=== PATIENT | female | born 1950 ===

== ENCOUNTER 2024-11-26 10:50 | Outpatient (AMB) | payer MEDICARE, SELFPAY ==
--- NOTE | 2024-11-26 10:53 | A.OFFPC_ITS ---
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: No Allergies No Known Allergies Allergy (Verified 11/26/24 11:05) Medication List - Last Reviewed 11/26/24 by Willie Das MA bupropion HCl XL 300 mg PO DAILY hydrochlorothiazide 12.5 mg PO DAILY lisinopril 40 mg PO DAILY Tobacco use date assessed: 11/26/24 Fall risk assessment: No Falls in past year Last assessed Fall Risk: 11/26/24 Dental Screening Dental Screen Date: 11/26/24 Did you have a dental visit in the last 12 months?: No Did you have a dental problem in the last 6 months where you did not have access to dental care?: No Was dental information given to patient?: Patient has dentist HPI HPI Comments History of Present Illness Details 74 y/o F with HTN, CKD3, IFG, HLD, ERIKA, MDD, OA of multiple joints, Fibromyalgia, obesity , Hx of provoked RLE DVT, biliary calculous, fhx breast ca, obesity SurgHx: s/p lung bx, FHx: Sister breast ca SocHx: ; Health Maintenance: See scanned preventative medicine assessment with personalized health plan and screening schedule. Colon: declined Mammo: declined DEXA : declined PAP Vaccines: Tdap 2024 Flu 11/2024 [employer] PPSV 2020; Shingrix ___ AAA screen EKG: [place] of Care: Ortho wears glasses Optho Wt Mgmt Visual Acuity: Hearing Screening: ACP: HCP Y Dietary/Nutrition/Exercise Edu provided: Y History of Present Illness The patient is a 74-year-old female presenting to [facility]. Old records rec'd and reviewed: [facility] Obesity: - BMI: 35.6. - Interested in GLP1 - Plan refer to [facility] [place] mgmt Hypertension: - On hydrochlorothiazide and lisinopril. - BP at goal, refills sent . Anxiety: - Previously used clonazepam to help her sleep; has been w/o for years d/t no PCP - Experiences disturbances in sleep. Depression: - Maintained on bupropion. Chronic Kidney Disease Stage 3: - No recent labs. Hyperlipidemia: - Not on statin therapy. Fibromyalgia: - Chronic pain Deep Vein Thrombosis (history), R - After a leg cast. Provoked. No further issues R knee pain and swelling; was getting injection by [facility] Needs new referral Review of Systems - Cardiovascular: Denies recent chest pa in, reports hypertension. - Musculoskeletal: Reports fibromyalgia, knee swelling, bruising. - Psychological: Reports anxiety, depres gus, difficulty sleeping. Physical Exam General: Well developed, well nourished, in no acute distress. Appears stated age. Head: Normocephalic, atraumatic. Eyes: Pupils are equal, round and reactive to light and accommodation. Conjunctivae are clear. Vision grossly normal. Lungs: Clear to auscultation bilaterally. No rales, rhonchi or wheeze noted. Good air flow in all richey. Heart: Regular rate and rhythm. No murmurs, click, rubs or gallops are noted. Musculoskeletal: R knee crepitus, from, normal strength, no erythema or warmth Pulses: Peripheral pulses are equal and palpable bilaterally. Extremities: No clubbing, cyanosis. Trace edema RLE (reports chronic), no edema LLE Psych: Mood and affect appropriate. Results Pending Discussion Notes I discussed with the patient her current health conditions including obesity, hypertension, anxiety, depression, CKD Stage 3, hyperlipidemia, fibromyalgia, and history of DVT. We reviewed her current medications and concerns about medication refills. For her insomnia and anxiety related symptoms, I proposed starting a low dose of Trazodone, explaining its efficacy and that it may need dose adjustment. We examined weight management options, clarifying that insurance often requires six months of documented lifestyle changes for coverage, and discussed that she could consider paying [id number] for weight loss medications if desired. I explained she would receive a referral for medical weight management and orthopedic consultation for her knee swelling. I suggested updating labs to monitor her blood sugar, cholesterol levels, and kidney function. Patient was given time to ask questions. All questions were answered to their satisfaction. Assessment and Plan 1. Obesity - Referral for weight management. 2. Hypertension - Refill hydrochlorothiazide, lisinopril . 3. Anxiety/Insomnia - Start Trazodone 50 mg, start with 25mg PRN. Titrate to effect 4. Depression - Continue bupropion. 5. Chronic Kidney Disease Stage 3 - Suggest lab update. 6. Hyperlipidemia - Suggest lab update. 7. Fibromyalgia - No changes. 8. Deep Vein Thrombosis (history) - Monitor status. 9. Knee Swelling, R - Referral to orthopedics. 10. Preventive Care - Update tetanus. - Get labs RTO 6 weeks for AWV and fu on trazadone start Patient Instructions - Take Trazodone as instructed for sleep . - Continue current medications. - Follow up with ortho as needed for kne e. - Schedule and attend weight management program. - Get labs done before the next visit. - Receive tetanus shot as discussed. Consent Patient was informed and verbally consented to the use of an ambient scribe for clinic note documentation during this visit. Total time spent caring for the patient today was 45 minutes. This includes time spent before the visit reviewing the chart, time spent during the visit, and time spent after the visit on documentation, reviewing laboratory results, diagnostic imaging, medications, performing a medically necessary evaluation, counseling on diagnoses, care coordination, ordering appropriate tests, ordering appropriate medications, review of tests performed by other providers, reporting test results with the patient, communication with other healthcare providers. [facility] Medical History (Updated 11/26/24 @ 11:34 by Magi Lewis [facility]) Arthritis Depression Edema Pre-diabetes Surgical History (Updated 11/26/24 @ 11:06 by Willie Das MA) H/O foot surgery History of lung biopsy Family History (Updated 11/26/24 @ 11:08 by Willie Das MA) Father HTN (hypertension) FH: kidney cancer Social History (Updated 11/26/24 @ 11:05 by Willie Das MA) Household Members: None Both parents involved: No Caregiver staying overnight: No Housing: House Are you a primary childcare attendant to a significant other at home: No Do you presently have visiting nurse or other home services: No 75 years or older and lives alone: No Alcohol intake: current Alcohol intake frequency: a few times a month Patient Tobacco Use Status: Never used Tobacco e-Cigarette/Vaping Use: Never Used Second Hand Smoke Exposure: No service: No Current occupational status: retired Current occupational exposures/hazards: No Cognitive needs: No Hearing needs: No Vision needs: Yes (wear glasses) Questionnaire PHQ-9 Over the last 2 weeks, how often have you been bothered by any of the following problems? 1. Little interest or pleasure in doing things: not at all 2. Feeling down, depressed, or hopeless: not at all 3. Trouble falling or staying asleep, or sleeping too much: several days 4. Feeling tired or having little energy: several days 5. Poor appetite or overeating: not at all 6. Feeling bad about yourself - or that you are a failure or have let yourself or your family down: not at all 7. Trouble concentrating on things, such as reading the newspaper or watching television: not at all 8. Moving or speaking so slowly that other people could have noticed. Or the opposite - being so fidgety or restless that you have been moving around a lot more than usual: not at all 9. Thoughts that you would be better off or of hurting yourself in some way: not at all Total score: 2 Depression Screening Interpretation: Negative Depression Screening Done: Yes 08380 - PHQ-9 Billing: Yes Source: Developed by Drs. Cristian Walton, Kristin Helton, Tom Thomas and colleagues, with an educational vannesa from [employer]. Thrive Questionnaire Date Thrive assessed: 11/26/24 I am a: Patient What is your living situation today?: I have a steady place to live Within the past 12 months, did the food you bought not last and you didn't have the money to get more?: Never true Within the past 12 months, did you worry whether your food would run out before you got money to buy more?: Never true Do you have trouble paying for medicines?: No Do you have trouble getting transportation to medical appointments?: No Do you have trouble paying your heating and electricity bill?: No Do you have trouble taking care of your child, family member or friend?: No Do you have trouble with day-to-day activities such as bathing, preparing meals, shopping, managing finances, etc.?: No Are you currently unemployed and looking for a job?: No Are you interested in more education?: No Please select the resources that you would like help with: None Currently or been in a relationship where the following occur: No concerns reported THRIVE Score: 0 AUDIT C Alcohol Use Questionnaire (AUDIT-C) 1. How often do you have a drink containing alcohol?: 2-4 times a month 2. How many drinks containing alcohol do you have on a typical day when you are drinking?: 1 or 2 3. How often do you have six or more drinks on one occasion?: Never Total Score: 2 Score Reviewed/Action Taken: Yes ERIKA-7 AMB Questionnaire ERIKA-7 Date ERIKA - 7 assessed: 11/26/24 Feeling nervous, anxious, or on edge: 0 = Not at all Not being able to stop or control worryin = Not at all Worrying too much about different things: 0 = Not at all Trouble relaxin = Not at all Being so restless that it is hard to sit still: 0 = Not at all Becoming easily annoyed or irritable: 0 = Not at all Feeling afraid as if something awful might happen: 0 = Not at all Total ERIKA-7 score (0-4 normal; 5-9 mild; 10-14 moderate; 15-21 severe): 0 Source: Developed by Drs. Cristian Walton, Kristin Helton, Tom Thomas and colleagues, with an educational vannesa from [employer]. ERIKA-7 Assessment Billing ERIKA-7 Assessment Tool: ERIKA-7 Assessment 17928 Physical exam (Primary Care) Vital Signs: Last Vital Signs Temp 97.3 F 11/26/24 11:02 Pulse 78 11/26/24 11:02 Resp 12 11/26/24 11:02 BP 124/72 11/26/24 11:02 Pulse Ox 98 11/26/24 11:02 Oxygen Delivery Method Room Air 11/26/24 11:02 BMI result Body Mass Index 35.6 BMI Assessment/Plan discussion: High BMI High, discussed plan: lifestyle Tobacco/Smoking Status: Tobacco use Status Tobacco use date assessed 11/26/24 11/26/24 11:00 Patient Tobacco Use Status Never used Tobacco 11/26/24 11:05 e-Cigarette/Vaping Use Never Used 11/26/24 11:05 PHQ-9: PHQ-9 Score PHQ-9: Total score 2 11/26/24 11:08 Depression Screening Interpretation: Negative Thrive Assessment: Date of Thrive Assessment Date Thrive assessed 11/26/24 11/26/24 11:00 Currently or been in a relationship where the following occur: No concerns reported Immunizations Boostrix Tdap 2.5 Lf unit-8 mcg-5 Lf/0.5 mL intramuscular syringe Performing Provider: ROSSY Lamar Performing Location: [facility] Administered by: Willie Das MA on 11/26/24 11:31 Dose Route Admin Location Dispensed Lot Number Expiration Date NDC Home Mortgage Disclosure Act Specialist 0.5 mL IM Left Deltoid 0.5 mL [id number] 12/18/26 37903-661-06 [place] Total Dispensed Waste 0.5 mL 0 % VIS Given Date VIS Provided VIS Publication Date 11/26/24 Single Vaccine 20 Eligibility Eligibility Date Funding Source Not [facility] Eligible 11/26/24 Private Coding Level of Care Code New Pt Level 4 (00940) Complex EM visit Add On G2211 Diagnoses Encounter to establish care with new provider Z76.89 Primary hypertension I10 Hypertension type: primary hypertension Stage 3a chronic kidney disease N18.31 Chronic kidney disease stage 3 subtype: stage 3a (GFR 45-59) IFG (impaired fasting glucose) R73.01 Mixed hyperlipidemia E78.2 Hyperlipidemia type: mixed hyperlipidemia ERIKA (generalized anxiety disorder) F41.1 Mild episode of recurrent major depressive disorder F33.0 Major depression episode severity: mild Fibromyalgia M79.7 Hx of deep venous thrombosis Z86.718 Family history of breast cancer Z80.3 Colon cancer screening declined Z53.20 Mammogram declined Z53.20 Obesity (BMI 30-39.9) E66.9 Psychophysiological insomnia F51.04 Insomnia type: psychophysiologic Arthritis of right knee M17.11 Need for Tdap vaccination Z23 Additional Codes ERIKA-7 Assessment Billing - ERIKA-7 Assessment Tool: ERIKA-7 Assessment 30401 ([id number]) PHQ-9 - 15097 - PHQ-9 Billing: Yes ([id number]) Assessment & Plan Assessment & Plan (1) Encounter to establish care with new provider: Code(s): Z76.89 - Persons encountering health services in other specified circumstances (2) HTN (hypertension): Code(s): I10 - Essential (primary) hypertension Category: Medical Qualifiers: Hypertension type: primary hypertension Qualified Code(s): I10 - Essential (primary) hypertension (3) CKD (chronic kidney disease) stage 3, GFR 30-59 ml/min: Code(s): N18.30 - Chronic kidney disease, stage 3 unspecified Category: Medical Qualifiers: Chronic kidney disease stage 3 subtype: stage 3a (GFR 45-59) Qualified Code(s): N18.31 - Chronic kidney disease, stage 3a (4) IFG (impaired fasting glucose): Code(s): R73.01 - Impaired fasting glucose Category: Medical (5) HLD (hyperlipidemia): Code(s): E78.5 - Hyperlipidemia, unspecified Category: Medical Qualifiers: Hyperlipidemia type: mixed hyperlipidemia Qualified Code(s): E78.2 - Mixed hyperlipidemia (6) ERIKA (generalized anxiety disorder): Code(s): F41.1 - Generalized anxiety disorder Category: Medical (7) MDD (major depressive disorder), recurrent episode: Code(s): F33.9 - Major depressive disorder, recurrent, unspecified Category: Medical Qualifiers: Major depression episode severity: mild Qualified Code(s): F33.0 - Major depressive disorder, recurrent, mild (8) Fibromyalgia: Code(s): M79.7 - Fibromyalgia Category: Medical (9) Hx of deep venous thrombosis: Comment: RLE Provoked s/p fracture of R leg, in cast. Code(s): Z86.718 - Personal history of other venous thrombosis and embolism Category: Medical (10) Family history of breast cancer: Comment: sister Code(s): Z80.3 - Family history of malignant neoplasm of breast Category: Medical (11) Colon cancer screening declined: Onset Date: ~11/26/24 Code(s): Z53.20 - Procedure and treatment not carried out because of patient's decision for unspecified reasons Category: Medical (12) Mammogram declined: Onset Date: ~11/26/24 Code(s): Z53.20 - Procedure and treatment not carried out because of patient's decision for unspecified reasons Category: Medical (13) Obesity (BMI 30-39.9): Code(s): E66.9 - Obesity, unspecified Category: Medical (14) Insomnia: Code(s): G47.00 - Insomnia, unspecified Category: Medical Qualifiers: Insomnia type: psychophysiologic Qualified Code(s): F51.04 - Psychophysiologic insomnia (15) Arthritis of right knee: Code(s): M17.11 - Unilateral primary osteoarthritis, right knee Category: Medical (16) Need for Tdap vaccination: Code(s): Z23 - Encounter for immunization Category: Medical Plan . Orders: Orders Complete Blood Count no Diff Today E66.9 - Obesity, unspecified, E78.5 - Hyperlipidemia, unspecified, I10 - Essential (primary) hypertension, R73.01 - Impaired fasting glucose Hemoglobin A1c Today E66.9 - Obesity, unspecified, E78.5 - Hyperlipidemia, unspecified, I10 - Essential (primary) hypertension, R73.01 - Impaired fasting glucose Vitamin D 25-OH Total Today E66.9 - Obesity, unspecified, E78.5 - Hyperlipidemia, unspecified, I10 - Essential (primary) hypertension, R73.01 - Impaired fasting glucose TDaP Immunization Today Z23 - Encounter for immunization Comprehensive Met. Panel Today E66.9 - Obesity, unspecified, E78.5 - Hyperlipidemia, unspecified, I10 - Essential (primary) hypertension, R73.01 - Impaired fasting glucose Lipid Panel Today E66.9 - Obesity, unspecified, E78.5 - Hyperlipidemia, unspecified, I10 - Essential (primary) hypertension, R73.01 - Impaired fasting glucose Microalbumin, Random (w Creat) Today E66.9 - Obesity, unspecified, E78.5 - Hyperlipidemia, unspecified, I10 - Essential (primary) hypertension, R73.01 - Impaired fasting glucose TSH reflex Free T4 Today E66.9 - Obesity, unspecified, E78.5 - Hyperlipidemia, unspecified, I10 - Essential (primary) hypertension, R73.01 - Impaired fasting glucose Vitamin B12 and Folate Today E66.9 - Obesity, unspecified, E78.5 - Hyperlipidemia, unspecified, I10 - Essential (primary) hypertension, R73.01 - Impaired fasting glucose Referrals Orthopedics Referral M17.11 - Unilateral primary osteoarthritis, right knee Medical Weight Management Referral E66.9 - Obesity, unspecified Medications: New bupropion HCl XL 300 mg PO DAILY 90 tabs 2RF trazodone 25 mg (1/2 x 50 mg) PO BEDTIME PRN 30 tabs 0RF sleep hydrochlorothiazide 12.5 mg PO DAILY 90 tabs 2RF lisinopril 40 mg PO DAILY 90 tabs 2RF Patient Instructions: Walk-In Care (Urgent Care): We Make it Easy Walk-in for urgent medical issues such as: ? Seasonal Allergies ? Insect Bites ? Cough ? Diarrhea ? Acute Asthma Attacks ? Back, Knee or Joint Pain ? Ear Infection ? Fever without a Rash ? Headaches ? Nausea ? [place] Eye, Rash or Skin Irritation ? Sore Throat ? Sports Physicals ? Vomiting Most insurances are accepted. Patients do not need to be part of the [facility] to seek care at the walk-in clinic. Locations [address] [place] [address] Open Saturday through Saturday 8am-5pm *Hours may vary due to staffing availability. To confirm Walk-In Care hours please call. [facility] , [place] [address] ? [phone] [facility] Walk-In Care in [place] provides services to ages 18 and over. Open Saturday-Saturday: 7 a.m. to 5 p.m. and Saturday: 9 a.m. to 3 p.m.* *Hours may vary due to staffing availability. To confirm Walk-In Care hours in [place], please call [phone]. [address] [place] [address] ? [phone] [facility] Walk-In Care in [place] provides services to ages 12 and over. Open Saturday-Saturday: 8 a.m. to 5 p.m. Hours may vary due to staffing availability. To confirm Walk-In Care hours in [place], please call [phone]. LABORATORY SERVICES: [facility] ? Primary Location [address] [place] [address] Saturday through Saturday 6:00 AM ? 5:00 PM Saturday 7:00 AM ? 11:00 AM* [phone] The [facility] is centrally located near the front entrance of the [facility] for easy outpatient access. Convenient parking is provided for outpatients. *Hours may vary due to staffing availability. To confirm Laboratory hours for any location, please call [phone]. Offsite Location For your convenience, we offer offsite laboratory draw stations at the following locations: [address] [place] [address] ? [facility] [address] [place] [address], [address], [place] Saturday through Saturday 7:30 AM ? 1:00 PM* [phone] *Hours may vary due to staffing availability. To confirm Laboratory hours for any location, please call [phone]. [place] [address] Saturday through Saturday 6:00 AM ? 3:30 PM* Saturday 6:30 AM ? 3 PM* [phone] *Hours may vary due to staffing availability. To confirm Laboratory hours for any location, please call [phone]. [address] [facility] Saturday through Saturday 7:30 AM ? 4:00 PM* [phone] *Hours may vary due to staffing availability. To confirm Laboratory hours for any location, please call [phone]. [address] [facility] Saturday through 9:00 AM ? 4:00 PM* *Hours may vary due to staffing availability. To confirm Laboratory hours for any location, please call [phone]. Appointments are not necessary. Walk-ins are welcome. Like all the departments throughout the [facility], our Lab undergoes frequent reviews to ensure the quality and accuracy of test results, and our staff takes special pride in its status as a nationally accredited facility. Patient Portal: [facility] ONE PATIENT. ONE RECORD. BETTER CARE. [facility] has a fully integrated, cutting- edge mobile electronic health information system that has revolutionized the way we care for our patients and manage our organization. This system improves communication and coordination enabling us to provide safe, higher-quality care, and an overall positive experience for staff and patients. Our first priority, as always, is to deliver the highest quality care possible. The system is running in the background supporting that priority. This portal is for all [facility] services and practices. If you are experiencing any technical difficulties with enrolling or logging into the Patient Portal please complete the [facility] Patient Portal Technical Support Form. [facility] now offers a new secure on-line interactive tool for patients to review their health information ? ?Patient Portal. This interactive web portal will enable patients and their families to take an active role in their care by providing easy, secure access to their health information via the internet. The Patient Portal provides patients with instant access to their health information, including laboratory results, medications, allergies, demographic information, visit history, and more. In addition to managing their own care, parents and health care proxies with authorized consent will appreciate the ability to access the records of those individuals for whom they provide care. Please note: if you wish to gain access (Proxy) to another patient?s portal, you will be required to come to the Medical Records Department in person at [facility]. Both the patient giving proxy access and the proxy will need to provide photo identification and complete the appropriate authorization. The Patient Portal also allows track their appointments online. The [facility] Patient Portal also saves patients time by allowing them to submit updates to their demographic and contact information prior to their visits. Portal email notifications will also alert patients to any new activity on their portal, such as test results and new appointments. In order to initially enroll in the [facility] Patient Portal, you will need to enter some required information including the following: * your [facility] Medical Record number * your personal home email address * name * date of Please note: In order to enroll in the [facility] Patient Portal, we need to have your email address on file in your electronic medical record. ?The email address needs to be specific for one person (yourself) in order for your Portal enrollment to be successful. ?You can update your email address in person with our Registration staff when you are registering for a hospital visit. ?Otherwise, you will need to come to the Health Information Management (Medical Records) Department at [facility]. ?We are open from Saturday ? Saturday from 7:30 a.m. ? 4:30 p.m. ?You will be required to present a photo id. Once you have successfully enrolled in the Patient Portal, you will receive a one-time user id and password for the Portal, sent to your email address. ?This will allow you to log into the Patient Portal within 99 hrs and reset your own logon id and password, and define personal security questions. ?Once your permanent login and password have been set, you can log into the [facility] Patient Portal at any time via the blue button above or from the Portal [employer] button on any page of the [facility] website. [facility] and [facility] encourage all of our patients to enroll in Patient Portal as it presents a valuable opportunity for patients and their families to actively participate in their care and stay healthy Welcome to [facility]. ?We look forward to working with you.
[2024-11-26 11:02] VITALS: BP 124/72; PULSE 78; RESP 12; TEMP 36.3; O2SAT 98; BMI 35.6
== END 2024-11-26 11:33 | disposition home or self-care (01) ==
LOC: HO.HMCFM 10:52
PROVIDERS: PCP Nurse Practitioner Family; Visit Provider Nurse Practitioner Family
DX: I12.9 Hypertensive chronic kidney disease with stage 1 through stage 4 chronic kidney disease, or unspecified chronic kidney disease (principal); N18.31 Chronic kidney disease, stage 3a; Z76.89 Persons encountering health services in other specified circumstances; R73.01 Impaired fasting glucose; E78.2 Mixed hyperlipidemia; F41.1 Generalized anxiety disorder; F33.0 Major depressive disorder, recurrent, mild; M79.7 Fibromyalgia; Z86.718 Personal history of other venous thrombosis and embolism; Z80.3 Family history of malignant neoplasm of breast; Z53.20 Procedure and treatment not carried out because of patient's decision for unspecified reasons; Z23 Encounter for immunization

== ENCOUNTER 2024-11-26 10:50 | Outpatient (REF) | payer MEDICARE, SELFPAY ==
[2024-11-26 14:39] LABS: Hematocrit 38.3 % (37.0-47.0); Hemoglobin 12.7 g/dl (12.0-16.0); Mean Corpuscular HGB Conc 33.2 g/dl (31.0-35.0); Mean Corpuscular Hemoglobin 28.2 pg (27.0-33.0); Mean Corpuscular Volume 85.1 fL (80.0-98.0); NRBC Abs Auto 0.000 X10*3/uL (0.0-0.012); NRBC Pct Auto 0.0 /100WBC (0.0-0.2); Platelet Count 290 X10*3/uL (160-400); Red Blood Count 4.50 X10*6/uL (4.20-5.50); White Blood Count 7.4 X10*3/uL (4.8-10.8)
[2024-11-26 15:25] LABS: Alanine Aminotransferase 12 U/L (0-31); Albumin Level 4.3 g/dL (3.5-5.0); Alkaline Phosphatase 64 U/L (39-117); Anion Gap 12 (12-20); Aspartate Amino Transferase 22 U/L (5-31); Blood Urea Nitrogen 18 mg/dL (9-16); Calcium 9.5 mg/dL (8.4-10.2); Carbon Dioxide 28 mmol/L (22-29); Chloride 103 mmol/L (96-108); Cholesterol 212 mg/dL (<200); Estimated Glomerular Filt Rate 41; HDL Cholesterol 56 mg/dL (>40); Potassium 4.4 mmol/L (3.3-5.1); Sodium 139 mmol/L (135-145); Total Protein 7.4 g/dL (6.5-8.0); Triglycerides 207 mg/dL (<150)
[2024-11-26 15:35] LABS: Microalbum/Creatinine Ratio Ur 11.3 ug/mg cr (<30)
[2024-11-26 15:43] LABS: Folate 8.3 ng/mL (> or = 4.0); Vitamin B12 510 pg/mL (200-900)
== END 2024-11-26 10:51 | disposition home or self-care (01) ==
LOC: HO.WFDLDS 10:50
PROVIDERS: PCP Nurse Practitioner Family; Visit Provider Nurse Practitioner Family
DX: Z23 Encounter for immunization (principal); E78.5 Hyperlipidemia, unspecified; R73.01 Impaired fasting glucose; E66.9 Obesity, unspecified; I12.9 Hypertensive chronic kidney disease with stage 1 through stage 4 chronic kidney disease, or unspecified chronic kidney disease; N18.31 Chronic kidney disease, stage 3a; E78.2 Mixed hyperlipidemia; F41.1 Generalized anxiety disorder; F33.0 Major depressive disorder, recurrent, mild; M79.7 Fibromyalgia; F51.04 Psychophysiologic insomnia; M17.11 Unilateral primary osteoarthritis, right knee; Z53.20 Procedure and treatment not carried out because of patient's decision for unspecified reasons; Z68.35 Body mass index [BMI] 35.0-35.9, adult; Z79.899 Other long term (current) drug therapy; Z76.89 Persons encountering health services in other specified circumstances; Z86.718 Personal history of other venous thrombosis and embolism; Z80.3 Family history of malignant neoplasm of breast
CPT/HCPCS: 36415; 80053; 80061; 82043; 82306; 82570; 82607; 82746; 83036; 84443; 85027; 90471; 90715; 96127; 99202